=== PATIENT | female | born 1950 | race African-American/Black ===

== ENCOUNTER 2018-03-27 21:35 | Emergency (ER) | payer MEDICARE, OTHER ==
[~2018-03-27] VITALS: Ht 165.1 cm; Wt 127.0 kg
[2018-03-27] MEDS ORDERED: HYDROCODONE/ACETAMINOPHEN 10/325MG TABLET PO ONE (23:00)
[2018-03-27] MEDS ORDERED: SULFAMETHOXAZOLE/TRIMETHOPRIM 800/160MG TABLET PO ONE (23:00)
[2018-03-28 03:00] VITALS: BP 128/84
== END 2018-03-28 03:15 | disposition home or self-care (01) ==
LOC: ER 22:09
DX: L03.116 Cellulitis of left lower limb (principal); L03.115 Cellulitis of right lower limb; L02.426 Furuncle of left lower limb; L02.425 Furuncle of right lower limb; I10 Essential (primary) hypertension; Z86.73 Personal history of transient ischemic attack (TIA), and cerebral infarction without residual deficits; Z90.710 Acquired absence of both cervix and uterus
CPT/HCPCS: 99283

== ENCOUNTER 2019-05-29 23:23 | Inpatient (IN) | payer MEDICARE, OTHER ==
[~2019-05-29] VITALS: Ht 167.6 cm; Wt 158.8 kg
[2019-05-30] MEDS ORDERED: ONDANSETRON HCL 4MG/2ML INJ IV STA (01:42)
[2019-05-30] MEDS ORDERED: KETOROLAC 30MG/ML VIAL IV STA (01:42)
[2019-05-30 02:13] LABS: CLARITY URINE TURBID (CLEAR); COLOR URINE DARK YELLOW (YELLOW); KETONES URINE NEGATIVE (NEGATIVE); LEUKOCYTE ESTERASE URINE TRACE (NEGATIVE); NITRITE URINE POSITIVE (NEGATIVE); OCCULT BLOOD URINE NEGATIVE (NEGATIVE); PH URINE 6.5 (4.5-8.0); PROTEIN URINE NEGATIVE (NEGATIVE); SPECIFIC GRAVITY URINE 1.017 (1.005-1.030)
[2019-05-30 02:30] LABS: BASOPHILS % 0.7 % (0.0-2.0); EOSINOPHILS % 1.2 % (0.0-5.0); HEMATOCRIT. 35.2 % (36.0-48.0); HEMOGLOBIN. 11.4 g/dL (12.0-16.0); LYMPHOCYTES % 21.9 % (20.0-50.0); MEAN CORPUSCULAR HEMOGLOBIN 24.5 pg (28.0-32.0); MEAN CORPUSCULAR VOLUME 75.7 fL (81.0-99.0); MEAN PLATELET VOLUME 10.5 fl (7.4-10.4); MONOCYTES % 13.2 % (2.0-8.0); PLATELET 130 x1000/uL (130-400); RED BLOOD CELL COUNT 4.64 mill/uL (4.2-5.4); RED CELL DISTRIBUTION WIDTH 16.6 % (11.6-14.6)
[2019-05-30 02:36] LABS: CHLORIDE 103 mEq/L (98-107)
[2019-05-30] MEDS ORDERED: ACETAMINOPHEN 325MG TABLET PO PRN (08:45)
[2019-05-30] MEDS ORDERED: ONDANSETRON HCL 4MG/2ML INJ IV PRN (08:45)
[2019-05-30 10:47] LABS: *AMPHETAMINES SCREEN URINE NEGATIVE (NEGATIVE); *BARBITURATES SCREEN URINE NEGATIVE (NEGATIVE); *BENZODIAZEPINES SCREEN URINE NEGATIVE (NEGATIVE); *COCAINE SCREEN URINE NEGATIVE (NEGATIVE); METHADONE URINE SCREEN NEGATIVE (NEGATIVE); OPIATES URINE SCREEN NEGATIVE (NEGATIVE)
[2019-05-30 10:48] LABS: CANNABINOID URINE SCREEN NEGATIVE (NEGATIVE); PHENCYCLIDINE URINE SCREEN NEGATIVE (NEGATIVE)
[2019-05-30 11:00] VITALS: BP 120/66
[2019-05-30 12:00] VITALS: BP 168/70
[2019-05-30] MEDS: CEFTRIAXONE 1 G PREMIX 50 ML IV SCH (12:33)
[2019-05-30] MEDS: KETOROLAC 30MG/ML VIAL IV PRN (12:34)
[2019-05-30 16:00] VITALS: BP 120/72
[2019-05-30] MEDS ORDERED: LACT10SO6 PO (17:43)
[2019-05-30] MEDS ORDERED: AMLO10TA4 PO (17:43)
[2019-05-30] MEDS ORDERED: POTA99TA4 PO (17:43)
[2019-05-30] MEDS ORDERED: FURO-152 PO (17:43)
[2019-05-30] MEDS ORDERED: PRED10TA23 PO (17:43)
[2019-05-30 20:00] VITALS: BP 154/82
[2019-05-31 00:04] VITALS: BP 133/63
[2019-05-31 04:00] VITALS: BP 111/54
[2019-05-31 07:26] LABS: CHLORIDE 105 mEq/L (98-107)
[2019-05-31 07:43] LABS: HEMATOCRIT. 34.2 % (36.0-48.0); MEAN CORPUSCULAR HEMOGLOBIN 24.5 pg (28.0-32.0); MEAN CORPUSCULAR VOLUME 75.9 fL (81.0-99.0); MEAN PLATELET VOLUME 10.8 fl (7.4-10.4); PLATELET 120 x1000/uL (130-400); RED BLOOD CELL COUNT 4.51 mill/uL (4.2-5.4); RED CELL DISTRIBUTION WIDTH 16.4 % (11.6-14.6)
[2019-05-31 08:00] VITALS: BP 130/79
[2019-05-31] MEDS: AMLODIPINE 5MG TABLET PO SCH ×2 (09:00→09:31)
[2019-05-31 12:00] VITALS: BP 94/46
[2019-05-31] MEDS: CEFTRIAXONE 1 G PREMIX 50 ML IV SCH (15:48)
[2019-05-31 16:00] VITALS: BP 103/49
[2019-05-31 20:00] VITALS: BP 134/52
[2019-05-31 20:38] LABS: PLATELET ESTIMATE DECREASED
[2019-06-01 00:29] VITALS: BP 121/73
[2019-06-01 04:00] VITALS: BP 106/51
[2019-06-01 08:00] VITALS: BP 111/50
[2019-06-01] MEDS: AMLODIPINE 5MG TABLET PO SCH (08:53)
[2019-06-01 12:00] VITALS: BP 120/58
[2019-06-01 16:00] VITALS: BP 96/67
[2019-06-01] MEDS: CEFTRIAXONE 1 G PREMIX 50 ML IV SCH (16:00)
[2019-06-01 20:00] VITALS: BP 110/82
[2019-06-01] MEDS: KETOROLAC 30MG/ML VIAL IV PRN (20:56)
[2019-06-02] VITALS: BP 138/59
[2019-06-02 04:00] VITALS: BP 124/51
[2019-06-02 08:00] VITALS: BP 108/48
[2019-06-02] MEDS: AMLODIPINE 5MG TABLET PO SCH ×2 (08:31→09:00)
[2019-06-02 12:00] VITALS: BP 110/56
[2019-06-02 13:36] VITALS: BP 108/48
[2019-06-02] MEDS ORDERED: NYSTATIN POWDER 15GM TOP SCH ×2 (14:00)
== END 2019-06-02 17:19 | disposition home health service (06) | DRG 689 ==
LOC: ER 23:23 → EDBEDREQTM 05-30 05:20 → EDBEDREQ 05-30 05:20 → EDBEDREQSVC 05-30 05:20 → 7WST 05-30 05:53 → EDBEDREQ 05-30 05:57 → ENRESERV 05-30 09:02
PROVIDERS: ADMIT Internal Medicine; ATTEND Internal Medicine
DX: N39.0 Urinary tract infection, site not specified (principal); E43 Unspecified severe protein-calorie malnutrition; Z68.43 Body mass index [BMI] 50.0-59.9, adult; D64.9 Anemia, unspecified; E66.9 Obesity, unspecified; K74.60 Unspecified cirrhosis of liver; Z86.73 Personal history of transient ischemic attack (TIA), and cerebral infarction without residual deficits; I11.9 Hypertensive heart disease without heart failure; K42.9 Umbilical hernia without obstruction or gangrene; Z90.710 Acquired absence of both cervix and uterus; Z71.3 Dietary counseling and surveillance
CPT/HCPCS: 36415; 71045; 74176; 76700; 80048; 80076; 80305; 81003; 82652; 83605; 84443; 87077; 87186; 97162; 99285; J0696; J1885; J2405

== ENCOUNTER 2021-12-28 21:43 | Emergency (ER) | payer MEDICARE, OTHER ==
[~2021-12-28] VITALS: Ht 167.6 cm; Wt 109.0 kg
[~2021-12-28 21:43] MED LIST: AMLO10TA4 PO; FURO-152 PO; LACT10SO6 PO; POTA99TA4 PO
[2021-12-28 22:40] VITALS: BP 146/96
== END 2021-12-28 23:01 | disposition home or self-care (01) ==
LOC: ER 21:43
DX: I10 Essential (primary) hypertension (principal); F43.8 Other reactions to severe stress; E78.00 Pure hypercholesterolemia, unspecified; Z86.73 Personal history of transient ischemic attack (TIA), and cerebral infarction without residual deficits; Z79.899 Other long term (current) drug therapy
CPT/HCPCS: 99283